=== PATIENT | male | born 1955 | race Caucasian/White ===

== ENCOUNTER 2019-10-31 08:53 | Observation (INO) ==
[2019-10-31] MEDS ORDERED: PIPERACILLIN/TAZOBACTAM 3,375 MG in SODIUM CHLORIDE 0.9% 100 ML IV STA (09:11)
[2019-10-31] MEDS ORDERED: ONDANSETRON 4 MG/2 ML VIAL IV STA (09:11)
[2019-10-31] MEDS ORDERED: HYDROmorphone 2 MG/1 ML VIAL IV STA ×2 (09:11→12:27)
[2019-10-31] MEDS ORDERED: SODIUM CHLORIDE 0.9% 1,000 ML IV STA (09:11)
[2019-10-31 09:58] LABS: Basophils % 0.1 % (0.0-0.8); Eosinophils % 0.1 % (0.00-10.9); Hematocrit 47.4 VOL% (42.0-52.0); Hemoglobin 16.3 GM/DL (14.0-18.0); Immature Granulocytes % 0.4 %; Immature Granulocytes Absolute 0.05 #; Lymphocytes # 1.3 10*3/uL (1.4-4.0); Lymphocytes % 9.3 % (21.2-54.2); Mean Corpuscular HGB Conc 34.4 GM/DL (32-36); Mean Corpuscular Volume 90.6 FL (87-102); Mean Platelet Volume 9.3 FL (9.6-12.0); Monocytes % 3.8 % (1.7-12.7); Neutrophils % 86.3 % (38.7-73.9); Platelet Count 228 T/CUMM (130-400); Red Blood Count 5.23 MC/CUMM (3.8-5.5); Red Cell Distribution Width 12.6 % (9.3-17.3); White Blood Count 13.6 T/CUMM (4-12)
[2019-10-31 10:14] LABS: Calcium 9.4 MG/DL (8.5-10.1)
[2019-10-31 10:40] LABS: Apearance,Urine CLEAR (Clear); Bilirubin,Urine Negative (Negative); Blood, Urine Small mg/dL (Negative); Glucose,Urine (UA) Negative (Negative); Ketones,Urine 20 mg/dL (Negative); Mucus,Urine Occasional /LPF (Occasional); Nitrite,Urine Negative (Negative); Protein,Urine Negative; RBC,Urine 4 /HPF (0-4); Urine Color Yellow (Yellow); Urine Specific Gravity 1.025 (1.001-1.035); Urine Urobilinogen < 2.0 EU/DL (0.2-1.0); WBC,Urine 1 /HPF (0-6)
[2019-10-31 11:18] LABS: Albumin 4.4 G/DL (3.4-5.0); Bilirubin,Direct 0.12 MG/DL (0.0-0.20); Bilirubin,Indirect 0.6 MG/DL (0.0-1.0); Bilirubin,Total 0.7 MG/DL (0.2-1.0); Total Protein 8.7 G/DL (6.4-8.3)
[2019-10-31] MEDS ORDERED: MEPERIDINE 25 MG/1 ML VIAL IV PRN (12:04)
[2019-10-31] MEDS ORDERED: PROMETHAZINE INJ 25 MG in SODIUM CHLORIDE 0.9% 50 ML IV PRN (12:04)
[2019-10-31] MEDS ORDERED: ONDANSETRON 4 MG/2 ML VIAL IV PRN ×2 (12:04→14:37)
[2019-10-31] MEDS ORDERED: diphenhydrAMINE 50 MG/1 ML VIAL IV PRN (12:04)
[2019-10-31] MEDS ORDERED: BUPIVACAINE 0.5% 50 ML VIAL ONE (12:20)
[2019-10-31] MEDS ORDERED: LIDOCAINE 1%/EPI INJ 20 ML VIAL ONE (12:20)
[2019-10-31] MEDS ORDERED: TISSUE ADHESIVE 1 EACH APPLICATOR TOP ONE (12:20)
[2019-10-31] MEDS ORDERED: DEXTROSE 50% 25 GM/50 ML VIAL IV PRN (14:37)
[2019-10-31] MEDS ORDERED: MORPHINE 4 MG/1 ML VIAL IV PRN (14:37)
[2019-10-31] MEDS ORDERED: GLUCAGON 1 MG VIAL IM PRN (14:37)
[2019-10-31] MEDS ORDERED: NITROGLYCERIN SL 0.4 MG TABLET SL PRN (14:40)
[2019-10-31] MEDS ORDERED: SUCCINYLCHOLINE 200 MG/10 ML VIAL ONE (14:48)
[2019-10-31] MEDS ORDERED: METOPROLOL TARTRATE 5 MG/5 ML VIAL IV ONE (14:48)
[2019-10-31] MEDS ORDERED: GLYCOPYRROLATE 0.4 MG/2 ML VIAL ONE (14:48)
[2019-10-31] MEDS ORDERED: ONDANSETRON 4 MG/2 ML VIAL ONE (14:48)
[2019-10-31] MEDS ORDERED: LIDOCAINE 2% 5 ML VIAL ONE (14:48)
[2019-10-31] MEDS ORDERED: DESFLURANE 1 UNIT/15 MINUTE INH ONE (14:48)
[2019-10-31] MEDS ORDERED: MIDAZOLAM 2 MG/2 ML VIAL ONE (14:48)
[2019-10-31] MEDS ORDERED: propofoL 200 MG/20 ML VIAL IV ONE (14:48)
[2019-10-31] MEDS ORDERED: DEXAMETHASONE 4 MG/1 ML VIAL ONE (14:48)
[2019-10-31] MEDS ORDERED: fentaNYL 100 MCG/2 ML VIAL ONE (14:48)
[2019-10-31] MEDS ORDERED: NEOSTIGMINE 10 MG/10 ML VIAL ONE (14:49)
[2019-10-31] MEDS ORDERED: ROCURONIUM 100 MG/10 ML VIAL IV ONE (14:49)
[2019-10-31] MEDS: SODIUM CHLORIDE 0.9% 1,000 ML IV SCH (14:58)
[2019-10-31 15:15] LABS: Hematocrit 41.9 VOL% (42.0-52.0); Hemoglobin 14.3 GM/DL (14.0-18.0)
[2019-10-31] MEDS: cefOXitin 2,000 MG in SYRINGE 1 EACH IV SCH (18:28)
[2019-10-31] MEDS: carvediloL 6.25 MG TABLET PO SCH (20:53)
[2019-10-31 22:41] LABS: Hematocrit 40.1 VOL% (42.0-52.0); Hemoglobin 14.1 GM/DL (14.0-18.0)
[2019-11-01] MEDS: cefOXitin 2,000 MG in SYRINGE 1 EACH IV SCH ×2 (00:26→06:19)
[2019-11-01] MEDS: SODIUM CHLORIDE 0.9% 1,000 ML IV SCH ×2 (03:29→16:59)
[2019-11-01 06:26] LABS: Basophils % 0.1 % (0.0-0.8); Hemoglobin 12.8 GM/DL (14.0-18.0); Immature Granulocytes % 0.5 %; Immature Granulocytes Absolute 0.07 #; Lymphocytes # 1.2 10*3/uL (1.4-4.0); Mean Corpuscular HGB Conc 34.6 GM/DL (32-36); Mean Corpuscular Volume 90.7 FL (87-102); Mean Platelet Volume 9.6 FL (9.6-12.0); Monocytes % 5.6 % (1.7-12.7); Neutrophils % 84.8 % (38.7-73.9); Platelet Count 174 T/CUMM (130-400); Red Blood Count 4.08 MC/CUMM (3.8-5.5); Red Cell Distribution Width 12.7 % (9.3-17.3); White Blood Count 13.1 T/CUMM (4-12)
[2019-11-01 07:00] LABS: Calcium 8.2 MG/DL (8.5-10.1)
[2019-11-01] MEDS: carvediloL 6.25 MG TABLET PO SCH ×2 (08:57→21:01)
[2019-11-02 04:54] LABS: Basophils % 0.2 % (0.0-0.8); Eosinophils # 0.1 10*3/uL (0.0-0.87); Eosinophils % 1.1 % (0.00-10.9); Hemoglobin 12.4 GM/DL (14.0-18.0); Immature Granulocytes % 0.2 %; Immature Granulocytes Absolute 0.02 #; Lymphocytes # 2.4 10*3/uL (1.4-4.0); Lymphocytes % 26.2 % (21.2-54.2); Mean Corpuscular HGB Conc 33.5 GM/DL (32-36); Mean Platelet Volume 9.6 FL (9.6-12.0); Monocytes % 8.4 % (1.7-12.7); Neutrophils % 63.9 % (38.7-73.9); Platelet Count 172 T/CUMM (130-400); Red Blood Count 4.02 MC/CUMM (3.8-5.5); Red Cell Distribution Width 12.9 % (9.3-17.3); White Blood Count 9.1 T/CUMM (4-12)
[2019-11-02] MEDS: SODIUM CHLORIDE 0.9% 1,000 ML IV SCH ×2 (05:11→10:03)
[2019-11-02 07:39] VITALS: BP 142/76
[2019-11-02] MEDS: carvediloL 6.25 MG TABLET PO SCH (09:16)
== END 2019-11-02 10:15 | disposition home or self-care (01) ==
LOC: N.ED 08:53 → INTOOBSV 11:43 → N.EDINP 11:43 → N.3E 12:07
PROVIDERS: ADMIT Surgery; ATTEND Surgery